=== PATIENT | male | born 1985 | race Hispanic/Latino ===

== ENCOUNTER 2020-03-14 12:13 | Emergency (ER) | payer SELFPAY ==
[2020-03-14 13:21] LABS: RAPID GROUP A STREP NEGATIVE (NEGATIVE)
== END 2020-03-14 14:29 | disposition home or self-care (01) ==
LOC: EDH 12:13
DX: J06.9 Acute upper respiratory infection, unspecified (principal); I10 Essential (primary) hypertension
CPT/HCPCS: 87804; 87880